=== PATIENT | male | born 1995 | race African-American/Black ===

== ENCOUNTER 2018-04-02 07:11 | Emergency (ER) | payer SELFPAY ==
[2018-04-02 08:02] LABS: Hemoglobin 16.2 g/dL (14.0-18.0); Mean Corpuscular HGB CONC 32.2 g/dL (32.0-36.0); Mean Corpuscular Volume 87.1 fL (78.0-98.0); Mean Platelet Volume 9.5 fL (7.4-10.4); Platelet Count 163 thou/uL (130-400); RBC Distribution Width 12.4 % (11.5-14.5); Red Blood Cell (RBC) Count 5.78 mill/uL (4.70-6.10); White Blood Cell (WBC) Count 3.4 thou/uL (4.8-10.8)
[2018-04-02 08:03] LABS: ALT (SGPT) 83 U/L (8-55); AST (SGOT) 149 U/L (5-34); Albumin 4.5 g/dL (3.5-5.0); Alkaline Phosphatase 63 U/L (40-150); Anion Gap 14 mmol/L (10-20); BUN (Urea Nitrogen) 5 mg/dL (8.9-20.6); Bilirubin, Total 0.2 mg/dL (0.2-1.2); Calc. Creatinine Clearance 0 mL/min (70-130); Calcium 9.7 mg/dL (7.8-10.44); Carbon Dioxide 24 mmol/L (22-29); Chloride 104 mmol/L (98-107); Estimated GFR-MDRD Greater than 90; Globulin 3.8 g/dL (2.4-3.5); Glucose 98 mg/dL (70-105); Potassium 4.4 mmol/L (3.5-5.1); Protein, Total 8.3 g/dL (6.0-8.3); Sodium 138 mmol/L (136-145)
--- NOTE | 2018-04-02 08:03 | RAD ---
EXAM: CHEST ONE VIEW: History: Cough, witnessed syncope and collapse at work. FINDINGS: Monitor leads overlie the chest. Heart size is normal. The lungs are clear. IMPRESSION: No acute intrathoracic disease. POS: [facility]
[2018-04-02] MEDS ORDERED: Fentanyl 100 MCG/2 ML VIAL ONE (08:17)
[2018-04-02 08:27] LABS: Band 9 % (5-11); Eosinophils 3 % (0-10); Lymphocytes 27 % (21-51); MDiff Complete? YES; Monocytes 25 % (0-10); Neutrophil 36 % (42-75); Platelet Morphology Comment Appears Adequate; RBC Morphology Normal
[2018-04-02 09:49] LABS: Bilirubin Negative (Negative); Blood, Urine Negative (Negative); Clarity CLEAR (Clear); Glucose, Urine (Dipstick) Negative (Negative); Leukocyte Negative (Negative); Nitrite Negative (Negative); Protein, Urine (Dipstick) Trace mg/dL (Neg-Trace); Specific Gravity, Urine 1.024 (1.002-1.036)
--- NOTE | 2018-04-05 18:17 | EKG ---
Test Reason : Blood Pressure : / mmHG Vent. Rate : 081 BPM Atrial Rate : 081 BPM P-R Int : 148 ms QRS Dur : 084 ms QT Int : 338 ms P-R-T Axes : 102 080 034 degrees QTc Int : 392 ms Normal sinus rhythm ST elevation, consider early repolarization Borderline ECG Confirmed by KENYATTA ROCHE MD ([id number]), acquisitions editor SHEREEN CARREON ([id number]) on 04/05/2018 6:17:16 PM Referred By: Confirmed By:KENYATTA ROCHE MD
== END 2018-04-02 10:42 | disposition home or self-care (01) ==
LOC: ERS 07:11
DX: E86.0 Dehydration (principal); I10 Essential (primary) hypertension; F17.210 Nicotine dependence, cigarettes, uncomplicated
CPT/HCPCS: 71045; 80053; 81003; 85025; 93005; 96360; 96361; J3010